=== PATIENT | male | born 1945 | race Caucasian/White ===

== ENCOUNTER 2024-11-16 16:41 | Emergency (ER) | payer MEDICARE, SELFPAY ==
--- NOTE | 2024-11-16 16:45 | HMH.EDGENADL ---
Discharge Plan Disposition Patient Disposition: Xfer Short-Term Hosp Condition: Critical Prescriptions Prescriptions: No Action acetaminophen 500 MG Tablet 500 mg PO NEEDED PRN (Reason: pain) diclofenac sodium 75 MG Tablet.Dr 75 mg PO BID Referrals Follow up/Referrals: Addison Gonzalez [Primary Care Provider] - See instructions Activity Restrictions/Add. Instructions Additional Instructions/Restrictions: To [facility] care of Dr. Wolfe Clinical Impressions Clinical Impression: Arterial hemorrhage, Penetrating traumatic injury of forearm Stand Alone Forms Stand Alone Forms: Transfer Record - ED Instructions Patient Instructions: DI for Laceration Repair Print Language Print Language: Macedonian Discharge ED Provider: Maik Young General Adult HPI <SUZETTE Salmeron - Last Filed: 11/16/24 17:13> General Chief complaint: Wound/Laceration Stated complaint: sliced open by a catfish Time Seen by Provider: 11/16/24 16:44 History of Present Illness HPI narrative: Patient presents for evaluation of a left forearm injury. Patient was Fishing and got pierced by one of the spines. He began bleeding briskly immediately. He has no loss of motor or sensory but cannot control the bleeding. He is only on a baby aspirin a day. Related Data Home Medications ?Medication ?Instructions ?Recorded ?Confirmed acetaminophen 500 mg tablet 500 mg PO NEEDED PRN pain 12/29/17 01/13/18 diclofenac sodium 75 mg 75 mg PO BID Arthritis 12/29/17 01/13/18 tablet,delayed release Allergies Allergy/AdvReac Type Severity Reaction Status Date / Time No Known Allergies Allergy Verified 01/12/18 15:30 PFSH <SUZETTE Salmeron - Last Filed: 11/16/24 17:13> [facility] Disclaimer: The information contained in this section may have been updated after the patient was seen, as this information can be updated by other users. Social History (Updated 11/16/24 @ 17:13 by SUZETTE Salmeron) Smoking Status: Current some day smoker alcohol intake: never current occupational status: retired Travel in the last 8 weeks?: None caffeine: No Have you lived/traveled outside [place] in past 30 days?: No Contact w/someone who lives/traveled outside [place] past 30 days?: No Exposure to someone with infectious disease in past 14 days?: No Do you have a fever (greater than 100.4 F or 38 C)?: No Have you tested positive for COVID-19?: No Exposed to someone with COVID-19 in past 14 days?: No Do you have a sore throat?: No Do you have a cough?: No Do you have any weakness?: No Do you have any diarrhea?: No Are you experiencing any unusual bleeding?: Yes Do you have any muscle aches/pain?: No Do you have any abdominal pain?: No Are you experiencing loss of taste or smell?: No <SUZETTE Salmeron - Last Filed: 11/16/24 17:13> ROS Obtained: Yes Systems reviewed as appropriate & no additional complaints except as documented Physical Exam <SUZETTE Salmeron - Last Filed: 11/16/24 17:13> General General appearance: alert and in no apparent distress Respiratory Respiratory exam: Present normal lung sounds bilaterally Cardiovascular Cardiovascular exam: Present regular rate and +S2 Neurological Exam Neurological exam: Present alert and oriented X3 Lymphatic Lymphatic Findings: no adenopathy Medical Decision Making <SUZETTE Salmeron - Last Filed: 11/16/24 17:13> Medical Records Medical records reviewed: Yes I reviewed the patient's medical records. Screening: Per USPSTF and CDC recommendations, given the prevalence of disease in our region, it is our hospital?s policy to screen for HIV and viral Hepatitis for all patients aged 18 and over and those with ongoing risk factors. Khari Inquiry Pt receiving controlled substance: No Vital Signs: 11/16/24 17:01 Temperature 98.6 F Temperature Source Oral Pulse Rate [Right] 89 Respiratory Rate 18 Blood Pressure [Right Arm] 153/71 H Blood Pressure Mean [Right Arm] 98 Blood Pressure Source [Right Arm] Automatic Cuff Blood Pressure Position [Right Arm] Supine 02 Sat by Pulse Oximetry 97 Oxygen Delivery Method Room Air Orders (Tests/Meds): ED MEDICATIONS Discontinued Medications Generic Name Dose Route Start Last Admin Trade Name Freq PRN Reason Stop Dose Admin Tetanus/Reduced Diphtheria/Acell Pertussis 0.5 ml 11/16/24 16:57 Tet/Diphth/Pert-Adult 0.5ml Syringe IM 11/16/24 16:58 .ONCE ONE ORDERS Category Date Time Status HIV Combo Stat Lab 11/16/24 17:08 Ordered Hepatitis C Ab Qual. W/ RFX Stat Lab 11/16/24 17:08 Ordered Medical Decision Narrative: In summary patient is a 79-year-old male who presents to the emergency department for evaluation of left forearm injury. Patient is hemodynamically stable upon arrival, afebrile. Physical exam is remarkable for a puncture wound at the medial aspect of the juncture in of the middle and distal thirds of the forearm. Upon taking the dressing down there is a bright arterial bleed. We attempted to control the bleeding with a tourniquet which was successful however he has poor collateral flow thus we did not leave the tourniquet up and we are able to control it with direct pressure. Given the emergent nature I had an immediate conversation with the [facility] transfer center Dr. Wolfe. Given that this is a penetrating trauma to the forearm with vascular bleed he has been accepted to the [facility] emergency department. I did consider labs and imaging but given the emergent nature and that the patient is currently hemodynamically stable I did not pursue any other diagnoses once he was auto accepted.. Differential diagnosis includes isolated ulnar artery injury versus possible limb ischemia versus other arterial injury but given the nature alternative diagnosis were not pursued. Thus patient will be transferred to the [facility] emergency department via ALS ambulance for evaluation by hand surgery care of Dr. Wolfe. <Maik Young MD - Last Filed: 11/16/24 17:45> Vital Signs: 11/16/24 17:01 Temperature 98.6 F Temperature Source Oral Pulse Rate [Right] 89 Respiratory Rate 18 Blood Pressure [Right Arm] 153/71 H Blood Pressure Mean [Right Arm] 98 Blood Pressure Source [Right Arm] Automatic Cuff Blood Pressure Position [Right Arm] Supine 02 Sat by Pulse Oximetry 97 Oxygen Delivery Method Room Air Orders (Tests/Meds): ED MEDICATIONS Discontinued Medications Generic Name Dose Route Start Last Admin Trade Name Freq PRN Reason Stop Dose Admin Tetanus/Reduced Diphtheria/Acell Pertussis 0.5 ml 11/16/24 16:57 Tet/Diphth/Pert-Adult 0.5ml Syringe IM 11/16/24 16:58 .ONCE ONE ORDERS Category Date Time Status HIV Combo Stat Lab 11/16/24 17:08 Ordered Hepatitis C Ab Qual. W/ RFX Stat Lab 11/16/24 17:08 Ordered Medical Decision Narrative: In summary patient is a 79-year-old male who presents to the emergency department for evaluation of left forearm injury. Patient is hemodynamically stable upon arrival, afebrile. Physical exam is remarkable for a puncture wound at the medial aspect of the juncture in of the middle and distal thirds of the forearm. Upon taking the dressing down there is a bright arterial bleed. We attempted to control the bleeding with a tourniquet which was successful however he has poor collateral flow thus we did not leave the tourniquet up and we are able to control it with direct pressure. Given the emergent nature I had an immediate conversation with the [facility] transfer center Dr. Wolfe. Given that this is a penetrating trauma to the forearm with vascular bleed he has been accepted to the [facility] emergency department. I did consider labs and imaging but given the emergent nature and that the patient is currently hemodynamically stable I did not pursue any other diagnoses once he was auto accepted.. Differential diagnosis includes isolated ulnar artery injury versus possible limb ischemia versus other arterial injury but given the nature alternative diagnosis were not pursued. Thus patient will be transferred to the [facility] emergency department via ALS ambulance for evaluation by hand surgery care of Dr. Wolfe. I was consulted by the ENMANUEL, and we discussed the complexity of the problems being addressed. I approved the treatment and management plan for this patient's care in the emergency department, thus performing a substantive portion of the medical decision making. I immediately saw the patient, he has a transected ulnar artery with poor radial flow which hemostasis was achieved with tracely pressure dressing. Maik Young MD Critical Care <SUZETTE Salmeron - Last Filed: 11/16/24 17:13> Critical Care Time Critical Care Time: Yes Attestation: On 11/16/24, the high probability of a clinically significant, sudden or life threatening deterioration of the following system(s) required my full and direct attention, intervention and personal management. The time I documented below is in addition to time spent performing reported procedures but includes the following listed in this critical care notation. Total Time Total Critical Care Time: 30
--- NOTE | 2024-11-16 17:00 | PC.NURSE ---
per MD orders this nurse held manual pressure to puncture wound for approx 10 minutes until bleeding was controlled and placed an inverted pressure dressing with sterile 4x4s and tegaderm. pt tolerated well.
[2024-11-16 17:01] VITALS: BP 153/71; PULSE 89; RESP 18; TEMP 37; O2SAT 97; BMI 21.7
--- NOTE | 2024-11-16 17:20 | PC.NURSE ---
Radial trace-let applied to Left distal radial artery site that was bleeding.
--- NOTE | 2024-11-16 17:21 | PC.NURSE ---
while pt was loaded on the stretcher the puncture site began to bleed through his pressure dressing. With MD at bedside radial tracelet applied to site by this nurse and [facility]. with 15ml of air. pt tolerated well. Jacobo Roberson assessed circulation after application.
[2024-11-16 17:25] VITALS: BP 142/87; PULSE 87; RESP 17; TEMP 37.1; O2SAT 98
== END 2024-11-16 17:25 | disposition short-term general hospital (02) ==
PROVIDERS: Emergency Provider Emergency Medicine; PCP Pediatrics
DX: S51.832A Puncture wound without foreign body of left forearm, initial encounter (principal); R58 Hemorrhage, not elsewhere classified; W56.52XA Struck by other fish, initial encounter
CPT/HCPCS: 99291